=== PATIENT | male | born 1975 | race Caucasian/White ===

== ENCOUNTER 2016-10-02 14:02 | Inpatient (IN) | payer OTHER ==
[~2016-10-02] VITALS: Ht 164.1 cm; Wt 72.6 kg
[2016-10-02] VITALS (11 sets, daily range): BP systolic 83–126; BP diastolic 28–59
[2016-10-02 14:41] LABS: MEAN CORPUSCULAR HGB CONC 29.1 G/DL (32.0-36.0); MEAN CORPUSCULAR VOLUME 86 FL (80-99); MEAN PLATELET VOLUME 4.8 FL (6.5-10.1); PLATELET COUNT 312 K/UL (150-450); RED BLOOD COUNT 2.13 M/UL (4.70-6.10); RED CELL DISTRIBUTION WIDTH 25.5 % (11.6-14.8); WHITE BLOOD COUNT 6.2 K/UL (4.8-10.8)
[2016-10-02 14:59] LABS: ALANINE AMINOTRANSFERASE 19 U/L (3-41); ALBUMIN/GLOBULIN RATIO 1.1 (1.0-2.7); ANION GAP 40 (5-15); ASPARTATE AMINO TRANSFERASE 29 U/L (5-40); CALCIUM 7.6 mg/dL (8.6-10.2); CHLORIDE 77 mEQ/L (98-107); HEMOLYSIS 12; LIPASE 138 U/L (< 60); SODIUM 123 mEQ/L (135-145); TOTAL PROTEIN 6.4 g/dL (6.6-8.7)
[2016-10-02 15:01] LABS: TROPONIN I < 0.30 ng/mL (<=0.30)
[2016-10-02 15:10] LABS: CKMB 6.6 ng/mL (< 6.7)
[2016-10-02 15:15] LABS: CARBON DIOXIDE < 6 mEQ/L (20-30); POTASSIUM 7.9 mEQ/L (3.4-4.9)
[2016-10-02 15:18] LABS: INR 2.2 (0.9-1.1); PROTHROMBIN TIME 22.8 SEC (9.30-11.50)
[2016-10-02 15:23] LABS: CREATININE 35.6 mg/dL (0.7-1.2); GLOMERULAR FILTRATION RATE 1.3 mL/min (>60)
[2016-10-02] MEDS ORDERED: Sodium Polystyrene Sulfonate 15gm Powder ORAL ONE (15:30)
[2016-10-02] MEDS ORDERED: Calcium Gluconate 1gm/10ml vial IVP ONE (15:30)
[2016-10-02 15:36] LABS: BAND NEUTROPHILS % (MANUAL) 1 % (0-8); LYMPHOCYTES % (MANUAL) 4 % (20-45); NEUTROPHILS % (MANUAL) 93 % (45-75); TOTAL CELLS COUNTED 100
[2016-10-02 15:37] LABS: ANISOCYTOSIS 2+; HYPOCHROMASIA 3+; MICROCYTES 1+; POLYCHROMASIA 1+
[2016-10-02 15:38] LABS: BASOPHILS % (MANUAL) 0 % (0-2); EOSINOPHILS % (MANUAL) 0 % (0-3); PLATELET ESTIMATE ADEQUATE; PLATELET MORPHOLOGY NORMAL
[2016-10-02 15:39] LABS: BURR CELLS 2+
--- NOTE | 2016-10-02 16:46 | Diagnostic Imaging Report ---
Indication: Abdominal pain Technique: Spiral acquisitions obtained through the abdomen and pelvis. Patient given oral contrast. No IV contrast utilized, per referring physician request.. Multiplanar reconstructions were generated. Total dose length product 71 mGycm. CTDIvol(s) port mGy Comparison: None Findings: The appendix is normal. No evidence of diverticulosis or diverticulitis. No small bowel distention. No free or loculated intraperitoneal air or fluid. There is a moderate-sized hiatal hernia. This may be a paraesophageal hiatal hernia. Lack of IV contrast limits assessment of solid organs. The gallbladder is somewhat distended. Although there is no overt wall thickening, there is very slight indistinctness to the gallbladder margins. No radiopaque gallstones. No gross focal liver abnormalities. No biliary ductal dilatation. Pancreas, spleen, adrenals, kidneys are unremarkable. No mesenteric or retroperitoneal mass or adenopathy. The bladder is distended. No pelvic mass or adenopathy. The lung bases demonstrate some posterior atelectasis or scarring on the right, are otherwise clear. There is a wedge/burst compression fracture deformity of the T12 vertebral body, with approximately 70% height loss anteriorly, some posterior retropulsion. Impression: Distended gallbladder without stones. Subtle slight indistinctness to the gallbladder margins, of doubtful significance but raises possibility of acute cholecystitis. Consider ultrasound for further evaluation if there is high clinical suspicion Age-indeterminate T12 compression/burst fracture. Consider MRI for better characterization this is considered clinically relevant. No acute process otherwise Hiatal hernia The CT scanner at [facility] is accredited by the [employer] and the scans are performed using protocols designed to limit radiation exposure to as low as reasonably achievable to attain images of sufficient resolution adequate for diagnostic evaluation.
--- NOTE | 2016-10-02 17:46 | History & Physical ---
History and Physical History & Physicial dict renal failure hyper K, hypo Na severe anemia HIV dialysis transfuse ISAI KIRBY Oct 02, 2016 17:46
[2016-10-02 18:17] LABS: APPEARANCE,URINE CLEAR; KETONES,URINE NEGATIVE (NEGATIVE); LEUKOCYTE ESTERASE ,URINE 1+ (NEGATIVE); NITRITE,URINE NEGATIVE (NEGATIVE); PH,URINE 5 (4.5-8.0); PROTEIN,URINE 3+ (NEGATIVE); UROBILINOGEN,URINE NORMAL MG/DL (0.0-1.0)
[2016-10-02 19:04] LABS: BACTERIA,URINE FEW /HPF; RBC,URINE 0-2 /HPF (0 - 0)
[2016-10-02] MEDS ORDERED: VIBRAMYCIN100 MG ORAL (19:22)
[2016-10-02] MEDS ORDERED: METHYLPREDNISOLO4 M2 PO (19:22)
--- NOTE | 2016-10-02 19:30 | Emergency Room Report ---
History of Present Illness General Chief Complaint: Generalized Weakness Source: Medical Record Present Illness HPI 41-year-old male presents ED for evaluation of weakness. States that the last one week he feels weak, poor appetite and not drinking. BP low with field. Patient states he only has a history of iron deficiency anemia. States he was seen at urgent care at [facility] one week ago for treatment of a sinus infection. Denies any fevers or chills. Denies any chest pain or shortness of breath. No aggravating or relieving factors. Denies any other associated symptoms Allergies: Coded Allergies: No Known Allergies (Unverified , 10/02/16) Patient History Past Medical History: none Past Surgical History: none Pertinent Family History: none Social History: Denies: alcohol use, drug use, smoking Immunizations: UTD Reviewed Nursing Documentation: PMH: Agreed, PSxH: Agreed Nursing Documentation-PMH Past Medical History: No History, Except For Review of Systems All Other Systems: negative except mentioned in HPI Physical Exam Vital Signs Date Time Temp Pulse Resp B/P Pulse Ox O2 Delivery O2 Flow Rate FiO2 10/02/16 14:03 74 21 101/55 90 Room Air 10/02/16 14:17 94.3 Sp02 EP Interpretation: reviewed, normal General Appearance: no apparent distress, alert, GCS 15, non-toxic, lethargic Head: normocephalic, atraumatic Eyes: bilateral eye PERRL, bilateral eye normal inspection ENT: hearing grossly normal, normal pharynx, no angioedema, normal voice Neck: full range of motion, supple/symm/no masses Respiratory: chest non-tender, lungs clear, normal breath sounds, speaking full sentences Cardiovascular #1: regular rate, rhythm, no edema Cardiovascular #2: 2+ carotid (R), 2+ carotid (L), 2+ radial (R), 2+ radial (L) , 2+ dorsalis pedis (R), 2+ dorsalis pedis (L) Gastrointestinal: normal bowel sounds, non tender, soft, non-distended, no guarding, no rebound Rectal: deferred Genitourinary: normal inspection, no CVA tenderness Musculoskeletal: back normal, gait/station normal, normal range of motion, non- tender Neurologic: alert, oriented x3, responsive, motor strength/tone normal, sensory intact, speech normal Psychiatric: judgement/insight normal, memory normal, mood/affect normal, no suicidal/homicidal ideation Reflexes: 3+ bicep (R), 3+ bicep (L), 3+ tricep (R), 3+ tricep (L), 3+ knee (R) , 3+ knee (L) Skin: no rash, pallor Lymphatic: no adenopathy Procedures Critical Care Time Critical Care Time i. I feel this is a highly complex case requiring extensive working including EKG/Rhythm strip, Xray/CT/US, Blood/urine lab work, repeat exams while in ED, and administration of strong opiates/narcotics for pain control, admission to hospital or close patient follow up. Total time: 30 min bedside evaluation and treatment excludes procedures (EKG). Reason for critical care: Hypotensive, severe anemia, acute renal failure, hyperkalemia Possible complications: hypotension, hypertension, ID, shock, arrhythmias, metabolic acidosis, end organ damage, respiratory failure. Interventions: Labs, IV fluids, EKG, chest x-ray. Calcium, insulin/D50, Kayexalate. Shreyas catheter placement. Vit K Course: Patient brought in for weakness. Hemoglobin 5.3. K 7.9, Cr 35.6. EKG shows widened QRS. Given calcium, insulin/D50. Given Kayexalate. Blood ordered. Routine catheter placed. Patient will be taken for urgent dialysis Consultations: nursing staff, EMS, family Performed by: Dr Farrell Tolerated well condition = critical j. because of unstable vital signs this patient had a condition that could potentially threaten life or limb. I feel this is a critical patient who required my full attention while patient was considered critical. Total Critical Care Time excluding procedures was greater than 35 minutes Medical Decision Making Diagnostic Impression: Primary Impression: Severe anemia Additional Impressions: ARF (acute renal failure) Qualified Codes: N17.9 - Acute kidney failure, unspecified Hyperkalemia, diminished renal excretion Hyponatremia Pancreatitis Qualified Codes: K86.1 - Other chronic pancreatitis ER Course 41-year-old male presents to ED for weakness, poor appetite, not eating times one week Differential-dehydration, ACS, arrhythmia, sepsis Patient placed on stretcher. After initial history and physical I ordered labs , IV fluids, EKG Labs-no leukocytosis, hemoglobin 5.3, platelets okay, INR 2.2, potassium 7.9, creatinine 35.6, lipase elevated EKG-widening QRS Given calcium, insulin/D50, given Kayexalate. Given IV fluids. PRBCs ordered. CT shows distended bladder but no other acute process I placed Shreyas catheter in the right femoral patient will be receiving emergent dialysis Case discussed with Dr. Nolasco. Dr elaine consulted Diagnoses-severe anemia, ARF, hyperkalemia, hyponatremia, pancreatitis Admitted to ICU in critical condition Labs Test 10/02/16 14:13 10/02/16 14:15 10/02/16 18:00 Prothrombin Time 22.8 SEC (9.30-11.50) Prothromb Time International Ratio 2.2 (0.9-1.1) Activated Partial Thromboplast Time 52 SEC (23-33) White Blood Count 6.2 K/UL (4.8-10.8) Red Blood Count 2.13 M/UL (4.70-6.10) Hemoglobin 5.3 G/DL (14.2-18.0) Hematocrit 18.3 % (42.0-52.0) Mean Corpuscular Volume 86 FL (80-99) Mean Corpuscular Hemoglobin 25.0 PG (27.0-31.0) Mean Corpuscular Hemoglobin Concent 29.1 G/DL (32.0-36.0) Red Cell Distribution Width 25.5 % (11.6-14.8) Platelet Count 312 K/UL (150-450) Mean Platelet Volume 4.8 FL (6.5-10.1) Neutrophils (%) (Auto) % (45.0-75.0) Lymphocytes (%) (Auto) % (20.0-45.0) Monocytes (%) (Auto) % (1.0-10.0) Eosinophils (%) (Auto) % (0.0-3.0) Basophils (%) (Auto) % (0.0-2.0) Differential Total Cells Counted 100 Neutrophils % (Manual) 93 % (45-75) Lymphocytes % (Manual) 4 % (20-45) Monocytes % (Manual) 2 % (1-10) Eosinophils % (Manual) 0 % (0-3) Basophils % (Manual) 0 % (0-2) Band Neutrophils 1 % (0-8) Platelet Estimate Adequate Platelet Morphology Normal Polychromasia 1+ Hypochromasia 3+ Anisocytosis 2+ Microcytosis 1+ [place] Cells 2+ Sodium Level 123 mEQ/L (135-145) Potassium Level 7.9 mEQ/L (3.4-4.9) Chloride Level 77 mEQ/L (98-107) Carbon Dioxide Level < 6 mEQ/L (20-30) Anion Gap 40 (5-15) Blood Urea Nitrogen 173 mg/dL (7-23) Creatinine 35.6 mg/dL (0.7-1.2) Estimat Glomerular Filtration Rate 1.3 mL/min (>60) Glucose Level 85 mg/dL (74-106) Calcium Level 7.6 mg/dL (8.6-10.2) Total Bilirubin 0.3 mg/dL (0.0-1.2) Aspartate Amino Transf (AST/SGOT) 29 U/L (5-40) Alanine Aminotransferase (ALT/SGPT) 19 U/L (3-41) Alkaline Phosphatase 67 U/L (40-129) Total Creatine Kinase 961 U/L (38-174) Creatine Kinase MB 6.6 ng/mL (< 6.7) Creatine Kinase MB Relative Index 0.6 Troponin I < 0.30 ng/mL (<=0.30) Total Protein 6.4 g/dL (6.6-8.7) Albumin 3.4 g/dL (3.5-5.2) Globulin 3.0 g/dL Albumin/Globulin Ratio 1.1 (1.0-2.7) Lipase 138 U/L (< 60) Urine Color Pale yellow Urine Appearance Clear Urine pH 5 (4.5-8.0) Urine Specific [place] 1.015 (1.005-1.035) Urine Protein 3+ (NEGATIVE) Urine Glucose (UA) Negative (NEGATIVE) Urine Ketones Negative (NEGATIVE) Urine Occult Blood Negative (NEGATIVE) Urine Nitrite Negative (NEGATIVE) Urine Bilirubin Negative (NEGATIVE) Urine Urobilinogen Normal MG/DL (0.0-1.0) Urine Leukocyte Esterase 1+ (NEGATIVE) Urine RBC 0-2 /HPF (0 - 0) Urine WBC 2-4 /HPF (0 - 0) Urine Squamous Epithelial Cells None /LPF (NONE/OCC) Urine Bacteria Few /HPF (NONE) Urine Opiates Screen Positive (NEGATIVE) Urine Barbiturates Screen Negative (NEGATIVE) Phencyclidine (PCP) Screen Negative (NEGATIVE) Urine Amphetamines Screen Negative (NEGATIVE) Urine Benzodiazepines Screen Negative (NEGATIVE) Urine Cocaine Screen Negative (NEGATIVE) Urine Marijuana (THC) Screen Negative (NEGATIVE) EKG Diagnostic Results Rate: normal Rhythm: other - widened QRS ST Segments: no acute changes ASA given to the pt in ED: No Rhythm Strip Diag. Results EP Interpretation: yes Rhythm: NSR, no PVC's, no ectopy Last Vital Signs Date Time Temp Pulse Resp B/P Pulse Ox O2 Delivery O2 Flow Rate FiO2 10/02/16 19:05 76 14 98/32 100 Room Air 10/02/16 14:17 94.3 Status: improved Disposition: ADMITTED INPATIENT Condition: Critical Referrals: [facility] (PCP) SRAVANTHI FARRELL M.D. Oct 02, 2016 19:30
[2016-10-02] MEDS: Epogen (for ESRD on dialysis) SUBQ SCH (20:46)
[2016-10-02] MEDS ORDERED: Vancomycin 1 GM in D5W 275 ML IVPB ONE (22:30)
[2016-10-03] VITALS (24 sets, daily range): BP systolic 93–128; BP diastolic 47–73
[2016-10-03] MEDS ORDERED: Vancomycin 1gm inj IVPB ONE (00:40)
--- NOTE | 2016-10-03 00:58 | History and Physical Report ---
DATE OF ADMISSION: 10/02/2016 CHIEF COMPLAINT: Weakness and short of breath. HISTORY OF PRESENT ILLNESS: The patient is a poor historian. He reports that he has been ill for about a week. His cousin, however, is here with him and reports that he has been ill for at least a month with shortness of breath and weakness. He went to Urgent care recently and was diagnosed with sinusitis and given steroids and antibiotics. No laboratory tests were done. The patient reports that he has had some nausea and vomiting with abdominal pain as well. He presented to the emergency department today and was found to have renal failure and severe anemia. Admission was arranged. His creatinine is presently 35. His last creatinine previously was 1.7 about six months ago. PAST MEDICAL HISTORY: HIV and AIDS, hypertension, hyperlipidemia, and alcoholic. He has a history of Kaposi sarcoma, but the side is not known. He is too confused to give a coherent history at this time. He has a history of osteoporosis, , hyperlipidemia, iron deficiency anemia, pancreatitis, and hypogonadism. OUTPATIENT MEDICATIONS: Lisinopril and fenofibrate, testosterone, Isentress, Ativan, Carafate, Celexa, Truvada, Rogaine topical solution and [place] 3 oil as well as Prilosec. ALLERGIES: None. REVIEW OF SYSTEMS: Cannot be obtained due to confusion. PHYSICAL EXAMINATION: GENERAL: The patient is alert and appears disheveled and acutely ill. HEENT: Eyes showed some proptosis. Mouth has dry mucous membranes. CHEST: Clear. CARDIAC: Rhythm is regular without murmur, rub, or gallop. ABDOMEN: Soft and nontender. The liver and spleen not enlarged. There is no ascites or mass. EXTREMITIES: No clubbing, cyanosis, or edema. LABORATORY STUDIES: Show sodium 123, potassium 7.9, bicarbonate less than 6, BUN 173, and creatinine 35.6. CPK is 961. Lipase is 138. INR is 2.2. White count is 6200, hemoglobin 5.3, hematocrit 18.3, and platelet count is 312,000. Urinalysis is pending. IMAGING STUDIES: Imaging shows abdominal and pelvic CT scan with a distended gallbladder without stones. The bladder is distended. There is compression fracture of T12. The kidneys are noted to be unremarkable. No masses were found. IMPRESSIONS: 1. Renal failure acute on chronic. 2. Severe anemia. 3. Severe hyperkalemia. 4. Hyponatremia. 5. Human immunodeficiency virus. 6. History of hypertension now relatively hypotensive. 7. Hyperlipidemia. PLAN: The patient will be seen by Nephrology and a dialysis catheter will be placed and he will be started on dialysis. Blood transfusions will be given. We will check appropriate laboratory studies and consult with Nephrology. I have discussed his care with the cousin at the bedside. Roney Nolasco M.D. DR: SIMONE JOB#: [id number] CC: Biju James M.D.; Fax#: [phone] Nolasco M.D. ; Fax#: [phone]
[2016-10-03] MEDS ORDERED: Cefepime HCl 1 GM in D5W 55 ML IVPB SCH (01:00)
[2016-10-03] MEDS: [UNRECOGNIZED DRUG - OTHER] IV SCH ×4 (01:24→19:29)
[2016-10-03] MEDS: SODIUM BICARBONATE IV SCH ×4 (01:24→19:29)
[2016-10-03] MEDS: D5 IV SCH ×4 (01:24→19:29)
[2016-10-03] MEDS ORDERED: Cefepime 1gm vial ONE (01:41)
--- NOTE | 2016-10-03 02:38 | Consultation ---
DATE OF CONSULTATION: 10/02/2016 NEPHROLOGY CONSULTATION CONSULTING PHYSICIAN: Biju James M.D. REFERRING PHYSICIAN: Roney Nolasco M.D. REASON FOR CONSULTATION: Uremia. HISTORY OF PRESENT ILLNESS: The patient presents with severe weakness, uremia, and hyperkalemia. He is a poor historian. History is taken from the patient as well as review of records from [facility]. He has a history of AIDS, prior treatment for Kaposi's sarcoma, prior acute kidney injury in 2013, depression, hypertension, and anxiety. CKD - 3, but his creatinine was 1.45 in May of 2015, and I believe that is in the range of 1.7 in the fall of 2015. The patient says he has not been eating or drinking. He is very weak and may have had some diarrhea. He is somewhat confused and has some uremic encephalopathy. He also has severe anemia. There is a history of prior vertebral fracture and prior alcohol abuse, but he denies any alcohol for the last year. He has also had prior neck pain; major depression; hypothyroidism, borderline; osteoporosis; syphilis; neuropathy; family history of coronary artery disease; hyperlipidemia; iron-deficiency anemia; condyloma acuminata; esophagitis; hypertriglyceridemia; pancreatitis; fatty liver; and gallbladder polyp on ultrasound. The patient apparently had a note with a visit of 09/23/2016 for which he was given a Medrol Dosepak and doxycycline for apparently sinusitis. MEDICATIONS: He could not give an adequate list of medications, and apparently has not been taking medications lately, but medications taken from a record in [place] 2015 included ferrous sulfate, Isentress, fenofibrate, Truvada, Celexa, testosterone, lisinopril, minoxidil topical, biotin, multivitamins, omeprazole. HABITS: Per records, he is a nonsmoker. He has been a heavy drinker in the past, but quit about a year ago. SYSTEM REVIEW: HEAD, EYES, EARS, NOSE, AND THROAT: Vision and hearing appeared to be good. ENDOCRINE: No definite diabetes. He has borderline thyroid disease. PULMONARY: No asthma or TB. CARDIAC: History of hypertension. GASTROINTESTINAL: History of anorexia, weakness, and diarrhea. GENITOURINARY: No dysuria or difficulty voiding. NEUROLOGIC: No seizures or CVA. Again, the patient is a limited historian. PHYSICAL EXAMINATION: GENERAL: The patient is seen in the emergency room. Again, transferred to the ICU. He is acutely and chronically ill. VITAL SIGNS: Temperature 94.3, rectal; pulse 69; respirations 18; blood pressure 104/46; and pulse oximetry 94 on room air. HEAD, EYES, EARS, NOSE, AND THROAT: Oral mucosa is dry, and there is some mucus on his teeth. Sclerae nonicteric. NECK: No adenopathy. LUNGS: Clear. HEART: Rhythm is regular. I hear no murmur. ABDOMEN: Soft. No organomegaly or focal tenderness. GENITOURINARY: Carrizales catheters in place. No edema, cyanosis, or clubbing. RECTAL: Not done. NEUROLOGIC: He is alert, but somewhat disoriented. Unable to give the month or year. Somewhat . Ocular motions intact in all directions. Smile is symmetric. Tongue is midline. He moves all extremities. PERTINENT LABORATORIES: White count 6.2 and hemoglobin is 5.3 with a platelet of 312,000. Sodium 123, potassium 7.9, chloride 77, CO2 6, BUN 173, creatinine 35.6, glucose 85, and calcium 7.6. CK 961. Troponin less than 0.30. Albumin 3.4. Toxic screen shows positive for urine opiates. INR is 2.2. IMPRESSION: 1. Uremia, likely progression of underlying chronic kidney disease. Etiology unclear. Clinically, he has superimposed dehydration. 2. Hyperkalemia. 3. Acidosis. 4. Anemia of renal disease. 5. AIDS. 6. Possible toxicity of HIV medicines versus other etiology of renal failure to be determined. PLAN: The patient is getting emergent dialysis, hydration, and treatment of his anemia. He is critically ill. Detailed orders have been given. icu time 55 min Thank you. Biju James M.D. DR: DERIC JOB#: [id number] CC: HARJIT
[2016-10-03] MEDS ORDERED: Heparin Sod 1000 units/ml 10ml IV PRN (06:00)
[2016-10-03 06:15] LABS: MEAN CORPUSCULAR HEMOGLOBIN 27.7 PG (27.0-31.0); MEAN CORPUSCULAR HGB CONC 33.4 G/DL (32.0-36.0); MEAN CORPUSCULAR VOLUME 83 FL (80-99); MEAN PLATELET VOLUME 5.5 FL (6.5-10.1); PLATELET COUNT 232 K/UL (150-450); RED BLOOD COUNT 2.02 M/UL (4.70-6.10); RED CELL DISTRIBUTION WIDTH 21.8 % (11.6-14.8); WHITE BLOOD COUNT 3.9 K/UL (4.8-10.8)
[2016-10-03 07:15] LABS: FERRITIN 92 ng/mL (10-230)
[2016-10-03 07:17] LABS: LACTATE DEHYDROGENASE 168 U/L (135-230)
[2016-10-03 07:23] LABS: HEMOLYSIS 3; IRON 219 ug/dL (59-158)
[2016-10-03 07:27] LABS: CREATININE, RANDOM URINE 112.9 mg/dL
[2016-10-03 07:39] LABS: ALBUMIN/GLOBULIN RATIO 0.9 (1.0-2.7); CALCIUM 7.2 mg/dL (8.6-10.2); CREATININE 19.8 mg/dL (0.7-1.2); GLOMERULAR FILTRATION RATE 2.6 mL/min (>60); POTASSIUM 3.2 mEQ/L (3.4-4.9); TOTAL PROTEIN 5.5 g/dL (6.6-8.7)
[2016-10-03 07:40] LABS: URIC ACID 8.6 mg/dL (3.0-7.5)
[2016-10-03 08:37] LABS: BAND NEUTROPHILS % (MANUAL) 0 % (0-8); BASOPHILS % (MANUAL) 0 % (0-2); EOSINOPHILS % (MANUAL) 1 % (0-3); LYMPHOCYTES % (MANUAL) 8 % (20-45); NEUTROPHILS % (MANUAL) 88 % (45-75); PLATELET ESTIMATE ADEQUATE; PLATELET MORPHOLOGY NORMAL; TOTAL CELLS COUNTED 100
[2016-10-03 08:38] LABS: ANISOCYTOSIS 2+
[2016-10-03 08:39] LABS: HYPOCHROMASIA 2+
[2016-10-03 09:29] LABS: MEAN CORPUSCULAR HEMOGLOBIN 27.2 PG (27.0-31.0); MEAN CORPUSCULAR HGB CONC 32.9 G/DL (32.0-36.0); MEAN CORPUSCULAR VOLUME 83 FL (80-99); MEAN PLATELET VOLUME 5.6 FL (6.5-10.1); PLATELET COUNT 238 K/UL (150-450); RED BLOOD COUNT 2.15 M/UL (4.70-6.10); WHITE BLOOD COUNT 4.1 K/UL (4.8-10.8)
[2016-10-03 10:58] LABS: OTHERS PATHOLOGIST COMMENT
[2016-10-03 11:06] LABS: ANISOCYTOSIS 3+; BAND NEUTROPHILS % (MANUAL) 0 % (0-8); BASOPHILS % (MANUAL) 0 % (0-2); EOSINOPHILS % (MANUAL) 0 % (0-3); LYMPHOCYTES % (MANUAL) 11 % (20-45); NEUTROPHILS % (MANUAL) 79 % (45-75); PLATELET ESTIMATE ADEQUATE; PLATELET MORPHOLOGY NORMAL; TOTAL CELLS COUNTED 100
[2016-10-03 11:07] LABS: HYPOCHROMASIA 2+
--- NOTE | 2016-10-03 12:07 | Critical Care Progress Note ---
Assessment/Plan Assessment/Plan 1. Renal failure acute on chronic. 2. Severe anemia. 3. Severe hyperkalemia. 4. Hyponatremia. 5. Human immunodeficiency virus. 6. History of hypertension now relatively hypotensive. 7. Hyperlipidemia. continue dialysis stool OB Protonix transfuse keep in ICU not stable for transfer to Critical Care - Subjective ROS Limited/Unobtainable: Yes Condition: critical IV Access: dialysis access EKG Rhythm: Sinus Rhythm I&O: Intake and Output 10/02/16 10/03/16 19:00 07:00 Intake Total 1000 ml 3500.000 ml Output Total 450 ml 710 ml Balance 550 ml 2790.000 ml Intake Oral 420 ml IV Total 1000 ml 1030.000 ml Blood Product 250 ml Hemodialysis 1800 ml Output Urine Total 450 ml 210 ml Hemodialysis UF 500 ml Critical Care - Objective Last 24 Hour Vital Signs Date Time Temp Pulse Resp B/P Pulse Ox O2 Delivery O2 Flow Rate FiO2 10/03/16 08:00 91 10/03/16 08:00 96.8 92 18 106/65 99 Nasal Cannula 2.0 10/03/16 07:00 92 16 94/56 100 Nasal Cannula 2.0 10/03/16 06:00 92 15 93/50 100 Nasal Cannula 2.0 10/03/16 05:00 93 15 96/47 100 Nasal Cannula 2.0 10/03/16 04:00 97.9 94 14 93/54 100 Nasal Cannula 2.0 10/03/16 04:00 94 10/03/16 03:00 95 15 99/59 100 Nasal Cannula 2.0 10/03/16 02:00 96 19 116/53 100 Nasal Cannula 2.0 10/03/16 01:00 97.6 94 17 128/55 99 Nasal Cannula 2.0 10/03/16 00:05 Nasal Cannula 2.0 28 10/03/16 00:05 99 Nasal Cannula 2.0 28 10/03/16 00:00 91 10/03/16 00:00 91 20 126/54 99 Room Air 10/02/16 23:00 89 18 126/52 96 Room Air 10/02/16 22:15 96.7 90 18 105/41 94 Room Air 10/02/16 22:00 84 18 114/46 94 Room Air 10/02/16 21:45 96.7 84 18 100/59 94 Room Air 10/02/16 21:30 85 18 110/46 94 Room Air 10/02/16 21:15 81 18 84/43 94 Room Air 10/02/16 21:00 84 18 83/36 94 Room Air 10/02/16 20:51 82 10/02/16 20:45 83 18 86/46 94 Room Air 10/02/16 20:30 95.0 78 18 103/28 94 Room Air 10/02/16 20:15 95.8 75 18 98/49 94 Room Air 10/02/16 19:05 76 14 98/32 100 Room Air 10/02/16 14:17 94.3 69 18 104/46 94 Room Air 10/02/16 14:03 74 21 101/55 90 Room Air Status: alert, other - confused Neck: no JVD Lungs: clear Heart: normal rate Abdomen: non-tender Extremities: no C/C/E Accucheck: ISAI MERCADO Oct 03, 2016 12:07
--- NOTE | 2016-10-03 13:10 | Nephrology Progress Note ---
Assessment/Plan Problem List: (1) AIDS (2) Metabolic acidosis (3) ESRD (end stage renal disease) (4) Hyponatremia (5) Hyperkalemia, diminished renal excretion (6) Severe anemia (7) ARF (acute renal failure) (8) Metabolic encephalopathy Plan seen on dialysis, improving cognition, transfusing , lab studies pending to assess etiology of eskd Subjective Constitutional: Reports: weakness HEENT: Reports: no symptoms Genitourinary: Reports: no symptoms Neurologic/Psychiatric: Reports: pre-existing deficit Subjective alert mild confusion Objective Objective Last 24 Hour Vital Signs Date Time Temp Pulse Resp B/P Pulse Ox O2 Delivery O2 Flow Rate FiO2 10/03/16 12:39 Room Air 10/03/16 11:00 89 15 107/61 100 Nasal Cannula 2.0 10/03/16 10:00 91 15 105/52 100 Nasal Cannula 2.0 10/03/16 09:00 95 17 115/73 100 Nasal Cannula 2.0 10/03/16 08:00 91 10/03/16 08:00 96.8 92 18 106/65 99 Nasal Cannula 2.0 10/03/16 07:00 92 16 94/56 100 Nasal Cannula 2.0 10/03/16 06:00 92 15 93/50 100 Nasal Cannula 2.0 10/03/16 05:00 93 15 96/47 100 Nasal Cannula 2.0 10/03/16 04:00 97.9 94 14 93/54 100 Nasal Cannula 2.0 10/03/16 04:00 94 10/03/16 03:00 95 15 99/59 100 Nasal Cannula 2.0 10/03/16 02:00 96 19 116/53 100 Nasal Cannula 2.0 10/03/16 01:00 97.6 94 17 128/55 99 Nasal Cannula 2.0 10/03/16 00:05 Nasal Cannula 2.0 28 10/03/16 00:05 99 Nasal Cannula 2.0 28 10/03/16 00:00 91 10/03/16 00:00 91 20 126/54 99 Room Air 10/02/16 23:00 89 18 126/52 96 Room Air 10/02/16 22:15 96.7 90 18 105/41 94 Room Air 10/02/16 22:00 84 18 114/46 94 Room Air 10/02/16 21:45 96.7 84 18 100/59 94 Room Air 10/02/16 21:30 85 18 110/46 94 Room Air 10/02/16 21:15 81 18 84/43 94 Room Air 10/02/16 21:00 84 18 83/36 94 Room Air 10/02/16 20:51 82 10/02/16 20:45 83 18 86/46 94 Room Air 10/02/16 20:30 95.0 78 18 103/28 94 Room Air 10/02/16 20:15 95.8 75 18 98/49 94 Room Air 10/02/16 19:05 76 14 98/32 100 Room Air 10/02/16 14:17 94.3 69 18 104/46 94 Room Air 10/02/16 14:03 74 21 101/55 90 Room Air Intake and Output 10/02/16 10/03/16 19:00 07:00 Intake Total 1000 ml 3650.000 ml Output Total 450 ml 710 ml Balance 550 ml 2940.000 ml Intake Oral 420 ml IV Total 1000 ml 1180.000 ml Blood Product 250 ml Hemodialysis 1800 ml Output Urine Total 450 ml 210 ml Hemodialysis UF 500 ml Laboratory Tests 10/02/16 14:13: Prothrombin Time 22.8H, Prothromb Time International Ratio 2.2H, Activated Partial Thromboplast Time 52H 10/02/16 14:15: White Blood Count 6.2, Red Blood Count 2.13L, Hemoglobin 5.3*L, Hematocrit 18.3L , Mean Corpuscular Volume 86, Mean Corpuscular Hemoglobin 25.0L, Mean Corpuscular Hemoglobin Concent 29.1L, Red Cell Distribution Width 25.5H, Platelet Count 312, Mean Platelet Volume 4.8L, Neutrophils (%) (Auto) , Lymphocytes (%) (Auto) , Monocytes (%) (Auto) , Eosinophils (%) (Auto) , Basophils (%) (Auto) , Differential Total Cells Counted 100, Neutrophils % ( Manual) 93H, Lymphocytes % (Manual) 4L, Monocytes % (Manual) 2, Eosinophils % ( Manual) 0, Basophils % (Manual) 0, Band Neutrophils 1, Other Cell Type Pathologist comment, Platelet Estimate Adequate, Platelet Morphology Normal, Polychromasia 1+, Hypochromasia 3+, Anisocytosis 2+, Microcytosis 1+, [place]ee Cells 2+, Sodium Level 123L, Potassium Level 7.9*H, Chloride Level 77L, Carbon Dioxide Level < 6*L, Anion Gap 40H, Blood Urea Nitrogen 173H, Creatinine 35.6H, Estimat Glomerular Filtration Rate 1.3, Glucose Level 85, Calcium Level 7.6L, Total Bilirubin 0.3, Aspartate Amino Transf (AST/SGOT) 29, Alanine Aminotransferase (ALT/SGPT) 19, Alkaline Phosphatase 67, Total Creatine Kinase 961H, Creatine Kinase MB 6.6, Creatine Kinase MB Relative Index 0.6, Troponin I < 0.30, Total Protein 6.4L, Albumin 3.4L, Globulin 3.0, Albumin/Globulin Ratio 1.1, Lipase 138H 10/02/16 18:00: Urine Color Pale yellow, Urine Appearance Clear, Urine pH 5, Urine Specific [place] 1.015, Urine Protein 3+H, Urine Glucose (UA) Negative, Urine Ketones Negative, Urine Occult Blood Negative, Urine Nitrite Negative, Urine Bilirubin Negative, Urine Urobilinogen Normal, Urine Leukocyte Esterase 1+H, Urine RBC 0- 2H, Urine WBC 2-4, Urine Squamous Epithelial Cells None, Urine Bacteria Few, Urine Opiates Screen PositiveH, Urine Barbiturates Screen Negative, Phencyclidine (PCP) Screen Negative, Urine Amphetamines Screen Negative, Urine Benzodiazepines Screen Negative, Urine Cocaine Screen Negative, Urine Marijuana (THC) Screen Negative 10/03/16 04:00: Urine Osmolality [Pending], Urine Random Sodium 56, Urine Creatinine 112.9 10/03/16 04:45: White Blood Count 3.9L, Red Blood Count 2.02L, Hemoglobin 5.6*L, Hematocrit 16.7L, Mean Corpuscular Volume 83, Mean Corpuscular Hemoglobin 27.7, Mean Corpuscular Hemoglobin Concent 33.4, Red Cell Distribution Width 21.8H, Platelet Count 232, Mean Platelet Volume 5.5L, Neutrophils (%) (Auto) , Lymphocytes (%) (Auto) , Monocytes (%) (Auto) , Eosinophils (%) (Auto) , Basophils (%) (Auto) , Differential Total Cells Counted 100, Neutrophils % ( Manual) 88H, Lymphocytes % (Manual) 8L, Monocytes % (Manual) 3, Eosinophils % ( Manual) 1, Basophils % (Manual) 0, Band Neutrophils 0, Platelet Estimate Adequate, Platelet Morphology Normal, Hypochromasia 2+, Anisocytosis 2+, Sodium Level 133#L, Potassium Level 3.2#L, Chloride Level 86L, Carbon Dioxide Level 10L , Anion Gap 37H, Blood Urea Nitrogen 104#H, Creatinine 19.8H, Estimat Glomerular Filtration Rate 2.6, Glucose Level 130H, Uric Acid 8.6H, Calcium Level 7.2L, Iron Level 219H, Total Iron Binding Capacity , Percent Iron Saturation , Unsaturated Iron Binding , Ferritin 92, Total Bilirubin 0.3, Aspartate Amino Transf (AST/SGOT) 34, Alanine Aminotransferase (ALT/SGPT) 16, Alkaline Phosphatase 54, Ammonia 30, Lactate Dehydrogenase 168, Total Protein 5.5L, Albumin 2.7L, Globulin 2.8, Albumin/Globulin Ratio 0.9L, Amylase Level 40 , Lipase 74H, Folate [Pending], Anti-Nuclear Antibody Screen [Pending], c-ANCA Titer [Pending], p-ANCA Titer [Pending], Hepatitis B Surface Antigen [Pending], Hepatitis B Surface Antibody [Pending], Hepatitis C Antibody [Pending] 10/03/16 08:30: Stool Occult Blood [Pending] 10/03/16 08:50: White Blood Count 4.1L, Red Blood Count 2.15L, Hemoglobin 5.8*L, Hematocrit 17.8L, Mean Corpuscular Volume 83, Mean Corpuscular Hemoglobin 27.2, Mean Corpuscular Hemoglobin Concent 32.9, Red Cell Distribution Width 21.0H, Platelet Count 238, Mean Platelet Volume 5.6L, Neutrophils (%) (Auto) , Lymphocytes (%) (Auto) , Monocytes (%) (Auto) , Eosinophils (%) (Auto) , Basophils (%) (Auto) , Differential Total Cells Counted 100, Neutrophils % ( Manual) 79H, Lymphocytes % (Manual) 11L, Monocytes % (Manual) 10, Eosinophils % (Manual) 0, Basophils % (Manual) 0, Band Neutrophils 0, Platelet Estimate Adequate, Platelet Morphology Normal, Hypochromasia 2+, Anisocytosis 3+, Vancomycin Level Trough 22.7H Height (Feet): 5 Height (Inches): 4.60 Weight (Pounds): 160 General Appearance: no apparent distress, alert EENT: normal ENT inspection Neck: normal alignment Cardiovascular: normal rate, regular rhythm Respiratory/Chest: lungs clear Extremities: non-tender, normal inspection, other - no edema 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
[2016-10-04] VITALS (25 sets, daily range): BP systolic 105–150; BP diastolic 54–80
[2016-10-04] MEDS: SODIUM BICARBONATE IV SCH (02:46)
[2016-10-04] MEDS: [UNRECOGNIZED DRUG - OTHER] IV SCH (02:46)
[2016-10-04] MEDS: D5 IV SCH (02:46)
[2016-10-04] MEDS ORDERED: Cefepime 500mg in D5W 55ml IVPB SCH (03:00)
[2016-10-04 06:52] LABS: BASOPHILS % (AUTO) 0.4 % (0.0-2.0); LYMPHOCYTES % (AUTO) 9.3 % (20.0-45.0); MEAN CORPUSCULAR HEMOGLOBIN 28.6 PG (27.0-31.0); MEAN CORPUSCULAR HGB CONC 34.2 G/DL (32.0-36.0); MEAN CORPUSCULAR VOLUME 84 FL (80-99); MEAN PLATELET VOLUME 5.4 FL (6.5-10.1); MONOCYTES % (AUTO) 8.9 % (1.0-10.0); NEUTROPHILS % (AUTO) 81.4 % (45.0-75.0); PLATELET COUNT 165 K/UL (150-450); RED BLOOD COUNT 2.79 M/UL (4.70-6.10); RED CELL DISTRIBUTION WIDTH 18.4 % (11.6-14.8)
[2016-10-04 07:23] LABS: CALCIUM 7.5 mg/dL (8.6-10.2); CREATININE 13.2 mg/dL (0.7-1.2); GLOMERULAR FILTRATION RATE 4.2 mL/min (>60); TOTAL PROTEIN 5.2 g/dL (6.6-8.7)
[2016-10-04 07:25] LABS: MAGNESIUM 1.5 mg/dL (1.7-2.5); PHOSPHORUS 6.1 mg/dL (2.5-4.8)
[2016-10-04 07:29] LABS: POTASSIUM 2.6 mEQ/L (3.4-4.9)
--- NOTE | 2016-10-04 08:52 | Nephrology Progress Note ---
Assessment/Plan Problem List: (1) AIDS (2) Metabolic acidosis (3) ESRD (end stage renal disease) (4) Hyponatremia (5) Hyperkalemia, diminished renal excretion (6) Severe anemia (7) ARF (acute renal failure) (8) Metabolic encephalopathy (9) Diarrhea (10) Hypokalemia (11) Pancreatitis (12) OB + stool Plan seen on dialysis, improving cognition, transfused, lab studies pending to assess etiology of eskd, diarrhea studies ordered, anti ulcer regimen Subjective Constitutional: Reports: no symptoms, weakness HEENT: Reports: no symptoms Genitourinary: Reports: no symptoms Neurologic/Psychiatric: Reports: no symptoms Subjective alert mild confusion some loose bm Objective Objective Last 24 Hour Vital Signs Date Time Temp Pulse Resp B/P Pulse Ox O2 Delivery O2 Flow Rate FiO2 10/04/16 08:00 97.1 46 17 119/70 97 Room Air 10/04/16 06:00 52 20 110/71 95 Room Air 10/04/16 05:00 98.4 58 16 125/80 95 Room Air 10/04/16 04:00 66 20 110/71 95 Room Air 10/04/16 04:00 62 10/04/16 03:00 66 20 112/71 95 Room Air 10/04/16 02:00 66 20 108/65 95 Room Air 10/04/16 01:00 66 20 150/71 95 Room Air 10/04/16 00:00 98.4 68 20 105/57 95 Room Air 10/04/16 00:00 69 10/04/16 00:00 68 10/03/16 23:00 76 19 113/64 100 Room Air 10/03/16 22:00 79 20 110/61 100 Room Air 10/03/16 21:00 98.2 75 21 128/68 100 Room Air 10/03/16 20:00 75 10/03/16 20:00 80 20 113/61 100 Room Air 10/03/16 19:20 99 Nasal Cannula 2.0 28 10/03/16 19:10 Nasal Cannula 2.0 28 10/03/16 19:00 77 19 117/63 100 Room Air 10/03/16 18:00 76 18 120/63 100 Room Air 10/03/16 17:00 75 16 103/61 100 Room Air 10/03/16 16:00 98.1 86 15 113/62 100 Nasal Cannula 2.0 10/03/16 16:00 76 10/03/16 15:00 83 18 115/57 100 Nasal Cannula 2.0 10/03/16 14:22 Room Air 10/03/16 14:00 82 17 116/67 100 Nasal Cannula 2.0 10/03/16 13:00 80 15 109/60 100 Nasal Cannula 2.0 10/03/16 12:39 Room Air 10/03/16 12:00 97.7 80 15 105/58 100 Nasal Cannula 2.0 10/03/16 12:00 82 10/03/16 11:00 89 15 107/61 100 Nasal Cannula 2.0 10/03/16 10:00 91 15 105/52 100 Nasal Cannula 2.0 10/03/16 09:00 95 17 115/73 100 Nasal Cannula 2.0 Intake and Output 10/03/16 10/04/16 19:00 07:00 Intake Total 2360 ml 1735 ml Output Total 310 ml 590 ml Balance 2050 ml 1145 ml Intake Oral 360 ml 130 ml IV Total 1500 ml 1575 ml Blood Product 500 ml Other 30 ml Output Urine Total 310 ml 590 ml # Bowel Movements 4 4 Laboratory Tests 10/03/16 08:50: White Blood Count 4.1L, Red Blood Count 2.15L, Hemoglobin 5.8*L, Hematocrit 17.8L, Mean Corpuscular Volume 83, Mean Corpuscular Hemoglobin 27.2, Mean Corpuscular Hemoglobin Concent 32.9, Red Cell Distribution Width 21.0H, Platelet Count 238, Mean Platelet Volume 5.6L, Neutrophils (%) (Auto) , Lymphocytes (%) (Auto) , Monocytes (%) (Auto) , Eosinophils (%) (Auto) , Basophils (%) (Auto) , Differential Total Cells Counted 100, Neutrophils % ( Manual) 79H, Lymphocytes % (Manual) 11L, Monocytes % (Manual) 10, Eosinophils % (Manual) 0, Basophils % (Manual) 0, Band Neutrophils 0, Platelet Estimate Adequate, Platelet Morphology Normal, Hypochromasia 2+, Anisocytosis 3+, Vancomycin Level Trough 22.7H 10/04/16 06:00: White Blood Count 4.0L, Red Blood Count 2.79L, Hemoglobin 8.0#L, Hematocrit 23.4 #L, Mean Corpuscular Volume 84, Mean Corpuscular Hemoglobin 28.6, Mean Corpuscular Hemoglobin Concent 34.2, Red Cell Distribution Width 18.4H, Platelet Count 165, Mean Platelet Volume 5.4L, Neutrophils (%) (Auto) 81.4H, Lymphocytes (%) (Auto) 9.3L, Monocytes (%) (Auto) 8.9, Eosinophils (%) (Auto) 0.0, Basophils (%) (Auto) 0.4, Sodium Level 131L, Potassium Level 2.6*L, Chloride Level 87L, Carbon Dioxide Level 22, Anion Gap 22H, Blood Urea Nitrogen 63#H, Creatinine 13.2H, Estimat Glomerular Filtration Rate 4.2, Glucose Level 185H, Calcium Level 7.5L, Phosphorus Level 6.1H, Magnesium Level 1.5L, Total Bilirubin 0.2, Aspartate Amino Transf (AST/SGOT) 34, Alanine Aminotransferase ( ALT/SGPT) 19, Alkaline Phosphatase 58, Total Creatine Kinase 538H, Total Protein 5.2L, Albumin 2.6L, Globulin 2.6, Albumin/Globulin Ratio 1.0, Hepatitis A IgM Antibody [Pending], Hepatitis B Surface Antigen [Pending], Hepatitis B Core IgM Antibody [Pending], Hepatitis C Antibody [Pending] Height (Feet): 5 Height (Inches): 4.60 Weight (Pounds): 160 General Appearance: no apparent distress, alert EENT: normal ENT inspection Neck: normal alignment Cardiovascular: normal rate, regular rhythm Respiratory/Chest: normal breath sounds Abdomen: non tender, soft, no organomegaly Extremities: other - no edema 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
[2016-10-04] MEDS ORDERED: metroNIDAZOLE 500mg tab ORAL SCH (09:00)
--- NOTE | 2016-10-04 10:00 | Infectious Diseases Prog Note ---
Assessment/Plan Assessment/Plan Full consult to follow: A) 1) hiv, ? cd4/t-cell count, ? viral load 2) ? infectious diarrhea, ? c.diff., ? viral gastroenteritis 3) arf, anemia, hyperlipidemia, icu, nkda, ? sepsis, cultures negative P) 1) rocephin and flagyl 2) check labs, stool studies, us, cd4/viral load 3) anti-retrovirals when stable and immune status known 4) thank you Subjective Allergies: Coded Allergies: No Known Allergies (Unverified , 10/02/16) Objective Vital Signs Last 24 Hour Vital Signs Date Time Temp Pulse Resp B/P Pulse Ox O2 Delivery O2 Flow Rate FiO2 10/04/16 08:00 97.1 46 17 119/70 97 Room Air 10/04/16 06:00 52 20 110/71 95 Room Air 10/04/16 05:00 98.4 58 16 125/80 95 Room Air 10/04/16 04:00 66 20 110/71 95 Room Air 10/04/16 04:00 62 10/04/16 03:00 66 20 112/71 95 Room Air 10/04/16 02:00 66 20 108/65 95 Room Air 10/04/16 01:00 66 20 150/71 95 Room Air 10/04/16 00:00 98.4 68 20 105/57 95 Room Air 10/04/16 00:00 69 10/04/16 00:00 68 10/03/16 23:00 76 19 113/64 100 Room Air 10/03/16 22:00 79 20 110/61 100 Room Air 10/03/16 21:00 98.2 75 21 128/68 100 Room Air 10/03/16 20:00 75 10/03/16 20:00 80 20 113/61 100 Room Air 10/03/16 19:20 99 Nasal Cannula 2.0 28 10/03/16 19:10 Nasal Cannula 2.0 28 10/03/16 19:00 77 19 117/63 100 Room Air 10/03/16 18:00 76 18 120/63 100 Room Air 10/03/16 17:00 75 16 103/61 100 Room Air 10/03/16 16:00 98.1 86 15 113/62 100 Nasal Cannula 2.0 10/03/16 16:00 76 10/03/16 15:00 83 18 115/57 100 Nasal Cannula 2.0 10/03/16 14:22 Room Air 10/03/16 14:00 82 17 116/67 100 Nasal Cannula 2.0 10/03/16 13:00 80 15 109/60 100 Nasal Cannula 2.0 10/03/16 12:39 Room Air 10/03/16 12:00 97.7 80 15 105/58 100 Nasal Cannula 2.0 10/03/16 12:00 82 10/03/16 11:00 89 15 107/61 100 Nasal Cannula 2.0 10/03/16 10:00 91 15 105/52 100 Nasal Cannula 2.0 Height (Feet): 5 Height (Inches): 4.60 Weight (Pounds): 160 Microbiology Date/Time Source Procedure Growth Status 10/02/16 22:15 Blood Blood Culture - Preliminary NO GROWTH AFTER 24 HOURS Resulted 10/02/16 22:15 Blood Blood Culture - Preliminary NO GROWTH AFTER 24 HOURS Resulted 10/03/16 17:00 Indwelling Cath Urine Culture - Preliminary NO GROWTH Resulted 10/03/16 04:00 Urine,Clean Catch Urine Culture - Preliminary NO GROWTH Resulted Laboratory Tests Test 10/04/16 06:00 White Blood Count 4.0 K/UL (4.8-10.8) L Red Blood Count 2.79 M/UL (4.70-6.10) L Hemoglobin 8.0 G/DL (14.2-18.0) #L Hematocrit 23.4 % (42.0-52.0) #L Mean Corpuscular Volume 84 FL (80-99) Mean Corpuscular Hemoglobin 28.6 PG (27.0-31.0) Mean Corpuscular Hemoglobin Concent 34.2 G/DL (32.0-36.0) Red Cell Distribution Width 18.4 % (11.6-14.8) H Platelet Count 165 K/UL (150-450) Mean Platelet Volume 5.4 FL (6.5-10.1) L Neutrophils (%) (Auto) 81.4 % (45.0-75.0) H Lymphocytes (%) (Auto) 9.3 % (20.0-45.0) L Monocytes (%) (Auto) 8.9 % (1.0-10.0) Eosinophils (%) (Auto) 0.0 % (0.0-3.0) Basophils (%) (Auto) 0.4 % (0.0-2.0) Sodium Level 131 mEQ/L (135-145) L Potassium Level 2.6 mEQ/L (3.4-4.9) *L Chloride Level 87 mEQ/L (98-107) L Carbon Dioxide Level 22 mEQ/L (20-30) Anion Gap 22 (5-15) H Blood Urea Nitrogen 63 mg/dL (7-23) #H Creatinine 13.2 mg/dL (0.7-1.2) H Estimat Glomerular Filtration Rate 4.2 mL/min (>60) Glucose Level 185 mg/dL (74-106) H Calcium Level 7.5 mg/dL (8.6-10.2) L Phosphorus Level 6.1 mg/dL (2.5-4.8) H Magnesium Level 1.5 mg/dL (1.7-2.5) L Total Bilirubin 0.2 mg/dL (0.0-1.2) Aspartate Amino Transf (AST/SGOT) 34 U/L (5-40) Alanine Aminotransferase (ALT/SGPT) 19 U/L (3-41) Alkaline Phosphatase 58 U/L (40-129) Total Creatine Kinase 538 U/L (38-174) H Total Protein 5.2 g/dL (6.6-8.7) L Albumin 2.6 g/dL (3.5-5.2) L Globulin 2.6 g/dL Albumin/Globulin Ratio 1.0 (1.0-2.7) Hepatitis A IgM Antibody Pending Hepatitis B Surface Antigen Pending Hepatitis B Core IgM Antibody Pending Hepatitis C Antibody Pending Current Medications Medications (Trade) Dose Ordered Sig/Shannan Route PRN Reason Start Time Stop Time Status Last Admin Dose Admin Cefepime HCl/ Dextrose (Maxipime/D5W) 55 ml @ 110 mls/hr Q24H IVPB 10/04/16 03:00 10/11/16 02:59 10/04/16 05:47 Epoetin Jey (Procrit (for ESRD on dialysis)) 10,000 units SUN-SUN-SUN SUBQ 10/02/16 21:00 11/01/16 20:59 10/02/16 20:46 Heparin Sodium (Porcine) (Heparin Sod 1000 units/ml 10ml) 2,000 unit ONCE PRN IV HD USE ONLY 10/05/16 09:00 10/05/16 23:59 Metronidazole 500 mg 500 mg Q8HR ORAL 10/04/16 09:00 10/11/16 08:59 10/04/16 09:34 Pantoprazole 40 mg 40 mg EVERY 12 HOURS ORAL 10/03/16 09:00 11/02/16 08:59 10/04/16 08:45 Sodium Chloride (Sodium Chloride 1000ml bag) 1,000 ml @ 500 mls/hr Q2H PRN IVLG sbp<90 during hd 10/05/16 08:52 10/05/16 23:59 GUADALUPE OCHOA Oct 04, 2016 10:00
--- NOTE | 2016-10-04 10:10 | Diagnostic Imaging Report ---
Indication:Elevated Bun and Creatinine. Technique: Grayscale and duplex Doppler imaging of the kidneys performed. Comparison: None Findings: The size, contour, and echogenicity of both kidneys are within normal limits. Right kidney is 12.4 CM. Left kidney is 11.7 CM. There is no hydronephrosis. The IVC and urinary bladder are unremarkable. There is a Carrizales catheter present. Impression: Negative exam
[2016-10-04] MEDS ORDERED: cefTRIAXone 1 GM in D5W 50 ML IVPB SCH (12:00)
--- NOTE | 2016-10-04 12:07 | Diagnostic Imaging Report ---
Indication: Cough Comparison: None A single view chest radiograph was obtained. Findings: Cardiac silhouette is enlarged. The lungs are essentially clear. Bones are unremarkable. There is a retrocardiac density that may be a hiatal hernia. Impression: Suspected hiatal hernia.
--- NOTE | 2016-10-04 13:02 | Critical Care Progress Note ---
Assessment/Plan Assessment/Plan 1. Renal failure acute on chronic 2. Severe anemia; GI bleed 3. Severe hyperkalemia, resolved 4. Hyponatremia, resolved 5. Human immunodeficiency virus. 6. History of hypertension now relatively hypotensive. 7. Hyperlipidemia. 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 Critical Care - Subjective ROS Limited/Unobtainable: Yes Condition: improving IV Access: dialysis access EKG Rhythm: Sinus Rhythm I&O: Intake and Output 10/03/16 10/04/16 19:00 07:00 Intake Total 2360 ml 1885 ml Output Total 310 ml 590 ml Balance 2050 ml 1295 ml Intake Oral 360 ml 130 ml IV Total 1500 ml 1725 ml Blood Product 500 ml Other 30 ml Output Urine Total 310 ml 590 ml # Bowel Movements 4 4 Critical Care - Objective Last 24 Hour Vital Signs Date Time Temp Pulse Resp B/P Pulse Ox O2 Delivery O2 Flow Rate FiO2 10/04/16 12:00 97.4 54 15 107/62 95 Room Air 10/04/16 12:00 60 10/04/16 11:00 52 17 110/65 98 Room Air 10/04/16 10:00 49 17 121/71 98 Room Air 10/04/16 09:00 46 15 112/68 99 Room Air 10/04/16 08:00 45 10/04/16 08:00 97.1 46 17 119/70 97 Room Air 10/04/16 07:00 46 15 108/64 99 Room Air 10/04/16 06:00 52 20 110/71 95 Room Air 10/04/16 05:00 98.4 58 16 125/80 95 Room Air 10/04/16 04:00 66 20 110/71 95 Room Air 10/04/16 04:00 62 10/04/16 03:00 66 20 112/71 95 Room Air 10/04/16 02:00 66 20 108/65 95 Room Air 10/04/16 01:00 66 20 150/71 95 Room Air 10/04/16 00:00 98.4 68 20 105/57 95 Room Air 10/04/16 00:00 69 10/04/16 00:00 68 10/03/16 23:00 76 19 113/64 100 Room Air 10/03/16 22:00 79 20 110/61 100 Room Air 10/03/16 21:00 98.2 75 21 128/68 100 Room Air 10/03/16 20:00 75 10/03/16 20:00 80 20 113/61 100 Room Air 10/03/16 19:20 99 Nasal Cannula 2.0 28 10/03/16 19:10 Nasal Cannula 2.0 28 10/03/16 19:00 77 19 117/63 100 Room Air 10/03/16 18:00 76 18 120/63 100 Room Air 10/03/16 17:00 75 16 103/61 100 Room Air 10/03/16 16:00 98.1 86 15 113/62 100 Nasal Cannula 2.0 10/03/16 16:00 76 10/03/16 15:00 83 18 115/57 100 Nasal Cannula 2.0 10/03/16 14:22 Room Air 10/03/16 14:00 82 17 116/67 100 Nasal Cannula 2.0 Status: awake, other - confused Lungs: clear Heart: normal rate Abdomen: non-tender Extremities: no C/C/E Micro: Microbiology Date/Time Source Procedure Growth Status 10/02/16 22:15 Blood Blood Culture - Preliminary NO GROWTH AFTER 24 HOURS Resulted 10/02/16 22:15 Blood Blood Culture - Preliminary NO GROWTH AFTER 24 HOURS Resulted 10/03/16 17:00 Indwelling Cath Urine Culture - Preliminary NO GROWTH Resulted 10/03/16 04:00 Urine,Clean Catch Urine Culture - Preliminary NO GROWTH Resulted Accucheck: ISAI MERCADO Oct 04, 2016 13:02
[2016-10-04] MEDS ORDERED: metroNIDAZOLE 500mg 100 ML IVPB SCH (14:00)
--- NOTE | 2016-10-04 16:49 | Diagnostic Imaging Report ---
Indication:Abdominal pain Technique: Grayscale and duplex Doppler imaging of the abdomen performed. Comparison: None Findings: The liver, demonstrated part of the pancreas, aorta and IVC, both kidneys, spleen appear unremarkable. There is thickening of the gallbladder wall which is nonspecific. There is suggestion of a few polyps. No gallstones are seen. Sonographic Campa's is negative per technologist. There is no biliary ductal dilatation identified. Doppler evaluation of the main portal vein shows patency. There is no ascites. No hydronephrosis seen. Impression: Gallbladder wall thickening nonspecific. Gallbladder polyps
[2016-10-04] MEDS: Epogen (for ESRD on dialysis) SUBQ SCH (20:46)
[2016-10-04] MEDS ORDERED: NS 275ml ONE ×2 (21:24)
[2016-10-04] MEDS ORDERED: D5W 275ml ONE (21:24)
[2016-10-04] MEDS ORDERED: Tubing IV Secondary IV ONE ×2 (21:24)
[2016-10-04] MEDS ORDERED: Tubing Blood Filter IV ONE (21:24)
--- NOTE | 2016-10-05 07:03 | Emergency Room Report ---
History of Present Illness General Chief Complaint: Generalized Weakness Source: Medical Record Present Illness Allergies: Coded Allergies: No Known Allergies (Unverified , 10/02/16) Nursing Documentation-[facility] Past Medical History: No History, Except For Physical Exam Vital Signs Date Time Temp Pulse Resp B/P Pulse Ox O2 Delivery O2 Flow Rate FiO2 10/02/16 14:03 74 21 101/55 90 Room Air 10/02/16 14:17 94.3 10/03/16 00:05 2.0 28 Procedures Central Line Central Line : Consent: Written Central Line Lumen: jose Maximal Sterile Barrier Tech: yes cap, yes mask, yes sterile gown, yes sterile gloves, yes large sterile sheet, yes hand hygiene, yes chlorhexidine prep Central Line Postion: femoral (R) Anesthesia: Lidocaine Complications: none Central Line Post Position: sutured, good blood return Attempts: One Patient Tolerated: Well Complications: None Medical Decision Making Diagnostic Impression: Primary Impression: Severe anemia Additional Impressions: ARF (acute renal failure) Hyponatremia Pancreatitis Hyperkalemia, diminished renal excretion Last Vital Signs Date Time Temp Pulse Resp B/P Pulse Ox O2 Delivery O2 Flow Rate FiO2 10/04/16 21:00 97.5 57 13 115/68 99 Room Air 10/03/16 19:20 2.0 28 Disposition: ADMITTED INPATIENT Condition: Critical Referrals: [facility] (PCP) Patient Instructions: Anemia, Nonspecific, Smoking Cessation, Tips for Success , Hemodialysis SRAVANTHI WIN M.D. Oct 05, 2016 07:03
[2016-10-05] MEDS ORDERED: Heparin Sod 1000 units/ml 10ml IV PRN (09:00)
--- NOTE | 2016-10-05 12:48 | Consultation ---
DATE OF CONSULTATION: 10/05/2016 NOTE: POOR AUDIO QUALITY GASTROENTEROLOGY CONSULTATION REPORT: CHIEF COMPLAINT: I was asked to see this patient by Dr. Roney Nolasco for evaluation of anemia. HISTORY OF PRESENT ILLNESS: The patient is a pleasant 41-year-old man with multiple medical problems, was admitted uremia. He has extensive medical problems including AIDS and ____ hyperkalemia. He recently he had endoscopy and colonoscopy two years ago at [facility] by . He now complains of nausea and some diarrhea, but no hematemesis or melena. He has prior history of alcohol use . PAST MEDICAL HISTORY: History of AIDS, Kaposi's sarcoma, history of renal insufficiency, history of vertebral fractures, history of alcohol use, depression, history of leg pain, hypothyroidism, borderline osteoporosis, syphilis, neuropathy, hyperlipidemia, iron-deficiency anemia, condyloma acuminata, esophagitis, pancreatitis, fatty liver, and gallbladder polyp. SOCIAL HISTORY: The patient history of alcohol use, but stopped. The patient also nonsmoker. FAMILY HISTORY: Positive for coronary artery disease. REVIEW OF SYSTEMS: Otherwise negative. PHYSICAL EXAMINATION: GENERAL: The patient is well-developed and well-nourished man seen in the intensive care unit. HEENT: Normocephalic and atraumatic. Sclerae were anicteric. Oropharynx clear. NECK: Supple. CHEST: Clear to auscultation. CARDIOVASCULAR: Revealed regular rate. ABDOMEN: Soft with good bowel sounds. There is no organomegaly. EXTREMITIES: Revealed no edema. LABORATORY DATA: Laboratory data was noted. The patient had severe anemia, which has been corrected. ASSESSMENT: This patient has anemia which is multifactorial. He does have renal failure. It should be a primary . The patient should have stool occult blood checked to rule out gastrointestinal bleeding. If positive, the patient may need repeat endoscopy and/or colonoscopy. I will try to review the records of [facility] to see his previous workup. In the meantime, proton pump inhibitor also be given and CBC should be followed closely. I would hold off on anticoagulation and monitor the patient very closely. RECOMMENDATIONS: Per above discussion and per orders written in the chart. Thank you for asking me to participate in the care of this patient. Rodrigo Chou M.D. DR: Argelia JOB#: [id number] CC:
--- NOTE | 2016-10-05 23:58 | Consultation ---
DATE OF CONSULTATION: 10/04/2016 INFECTIOUS DISEASE CONSULTATION CONSULTING PHYSICIAN: Jaspreet Muro M.D. ATTENDING PHYSICIAN: Roney Nolasco M.D. REASON FOR CONSULTATION: Possible infectious diarrhea, HIV patient, abdominal pain, nausea, vomiting, diarrhea, weakness, and acute renal failure. HISTORY OF PRESENT ILLNESS: This is a 41-year-old male who has history of HIV, unclear T-cell count, has been on antiretroviral therapy. The patient has a recent diagnosis of sinusitis, was placed on antibiotics. The patient presented to [facility] with nausea, vomiting, diarrhea, and abdominal discomfort. The patient was somewhat hypothermic on admission, question if the patient had early sepsis. Infectious Disease consultation was requested because of the patient's history of HIV and also the possibility of C. diff and infectious diarrhea. A CT scan of the abdomen and pelvis was done, which showed distended gallbladder without stones of doubtful significance. Stool studies are pending. The patient was placed on Rocephin and Flagyl pending workup. The patient also had hypokalemia with potassium of 3.2 and 2.6. Case was discussed with Dr. Nolasco. MAR was noted. Orders were noted. Notes and records reviewed. REVIEW OF SYSTEMS: Constitutional: The patient came in and hypothermic. He has generalized fatigue and weakness. Head And Neck: No thrush or dysphagia. Cardiac: No chest pain or pressure. GI: He came in with abdominal pain, nausea, vomiting, and diarrhea. : No dysuria or frequency. Skin: No rash. Neurologic: No seizures. Pulmonary: No significant shortness of breath, cough, or sputum production. PAST MEDICAL HISTORY: The patient has a history of HIV, unclear what the T-cell count is. He does have a history of what looks like AIDS also, history of hypertension, hyperlipidemia, and history of ETOH abuse or alcoholism. The patient has a history of KS, history of osteoporosis, hyperlipidemia, iron deficiency anemia, pancreatitis, and hypogonadism. ALLERGIES: No known drug allergies. FAMILY HISTORY: Noncontributory. SOCIAL HISTORY: Positive for ETOH. The patient is a nonsmoker. No mention of IV drug abuse, but he is, as described, heavy drinker. MEDICATIONS: Upon reviewing the records, the patient's outpatient medications include lisinopril, fenofibrate, testosterone, Isentress, Ativan, Carafate, Celexa, Truvada, and Prilosec. Medications here, the patient received Rocephin, Flagyl, and Protonix. PHYSICAL EXAMINATION: VITAL SIGNS: Temperature on admission was 94.3 degrees, the patient's later temperature was 97.1, pulse rate 46, respiratory rate 17, blood pressure 119/70, and saturation 97%. GENERAL: The patient is weak and lethargic, but is arousable and somewhat oriented. HEAD AND NECK: Oral exam, no thrush. Eye exam, no icterus. Neck is supple. No JVD. No sinus tenderness. Normocephalic. No facial droop. No neck stiffness. LUNGS: Clear bilaterally. No rhonchi or rales. HEART: Regular. No gallop or murmur. ABDOMEN: Soft. Positive bowel sounds. No rebound. SKIN: No rash or dermatitis. MUSCULOSKELETAL: No effusions or contractures. Legs are without cellulitis. PERIPHERAL VASCULAR: No cyanosis or gangrene. RECTAL: Deferred. GENITOURINARY: No CVA tenderness. LINES: Line sites are without phlebitis. NEUROLOGIC: Generalized weakness. Responsive. LABORATORY DATA: The patient's potassium 2.6, sodium 131, creatinine 13.2, and BUN 63. White count 4.0, hemoglobin 8.0, and platelet count 165,000. Cultures negative to date. Urinalysis, 2 to 4 white blood cells. IMAGING: CT scan of the abdomen and pelvis showed distended gallbladder without stones of doubtful significance. Abdominal ultrasound showed nonspecific gallbladder wall thickening. Chest x-ray showed suspected hiatal hernia. Notes no consolidation. ASSESSMENT AND PLAN: 1. The patient with nausea, vomiting, abdominal pain, diarrhea, acute renal failure, and possible early sepsis. The patient came in with hypothermia. The patient has diarrhea. Differential diagnosis includes Clostridium difficile because of recent antibiotics for sinusitis. In addition, the patient is at risk for infectious diarrhea because of immunocompromised status with history of human immunodeficiency virus and acquired immune deficiency syndrome per records. The patient also has possibly viral gastroenteritis. At this time, continue Rocephin and Flagyl that the patient is on and check final cultures. Imaging was noted. The patient will be seen by Gastroenterology. Continue antibiotics. Check final workup, cultures, and labs. Continue other treatment per Dr. Nolasco. 2. Human immunodeficiency virus and acquired immune deficiency syndrome per the records. The patient T-cell count on arrival unknown at this time. They have been ordered, and antiretrovirals are on hold this time. We will consider restarting once renal failure is resolved and the patient's clinical status improved the patient has. 3. Acute renal failure. 4. Anemia. 5. Human immunodeficiency virus and acquired immune deficiency syndrome. 6. Hypertension. 7. Hyperlipidemia. 8. History of osteoporosis. 9. History of anemia. 10. Pancreatitis. 11. Hypogonadism. 12. Continue treatment per Dr. Nolasco. 13. Allergies are negative. 14. . 15. ICU care. 16. Case discussed with RN. 17. Case discussed with the patient. At the time of this dictation, the patient was transferred to [facility]. Jaspreet Muro M.D. DR: GEORGIE JOB#: [id number] CC:
--- NOTE | 2016-10-06 12:45 | Discharge Summary ---
Discharge Summary Hospital Course Date of Admission Oct 02, 2016 at 16:16 Date of Discharge Oct 04, 2016 at 21:25 Admitting Diagnosis ANEMIA GISELA Brooks is a 41 year old male who was admitted on Oct 02, 2016 at 16:16 for Anemia Hospital Course [id number] Discharge Discharge Disposition Patient was discharged to [facility] Discharge Diagnoses: Sabrina Villatoro NP Oct 06, 2016 12:45
--- NOTE | 2016-10-06 23:38 | Discharge Summary 2 SIG ---
DATE OF ADMISSION: 10/02/2016 DATE OF DISCHARGE: 10/04/2016 CONSULTANTS: 1. Biju James M.D. 2. Jaspreet Muro M.D. 3. Rodrigo Chou M.D. BRIEF HOSPITAL COURSE: The patient is a 41-year-old male, who has been ill for about a month with shortness of breath and weakness. He apparently went to an Urgent Care Center recently and was diagnosed with sinusitis and was given steroids and antibiotics. He presented to emergency room complaining of nausea, vomiting and abdominal pain. On evaluation, he was found to have renal failure and severe anemia. Creatinine was 35 and hemoglobin was 5.3. Admission was arranged and the patient was admitted to ICU. Dr. James was consulted for uremia and hyperkalemia. The patient would need an emergent dialysis. He was also given a total of four units of packed RBC blood transfusion. He was placed on a Protonix. Stool OB was positive. Dr. Chou was consulted for evaluation of anemia. Dr. Muro was also consulted for evaluation of nausea, vomiting, diarrhea and HIV and was started empirically on Rocephin and Flagyl. He was eventually transferred to [facility]. FINAL DIAGNOSES: 1. Acute on chronic renal failure. 2. Severe acute anemia with possible gastrointestinal bleed. 3. Severe hyperkalemia, resolved. 4. Hyponatremia, resolved. 5. Human immunodeficiency virus. 6. Hypotension with history of hypertension. 7. Hyperlipidemia. Roney Nolasco M.D. I have been assigned to dictate discharge summary on this account and I was not involved in the patient's management. Sabrina Villatoro N.P. DR: ALANA JOB#: [id number] CC: HARJIT
--- NOTE | 2016-10-08 18:28 | Cardiology Report ---
APPROVED REPORT EKG Measurement Heart [id number] Sinus rhythm with 1st degree AV block Nonspecific intraventricular block Abnormal ECG
[2016-10-09 11:10] LABS: HIV RNA PCR QUANT <20 copies/mL (.)
== END 2016-10-04 21:25 | disposition short-term general hospital (02) | DRG 682 ==
LOC: EDBD 14:02 → EDBEDREQSVC 15:36 → EDBEDREQ 15:36 → EMR 15:45 → ICU 16:16 → EDBEDREQ 16:28
PROC: 30233N1 Transfusion of Nonautologous Red Blood Cells into Peripheral Vein, Percutaneous Approach (ICD-10-PCS; principal; 2016-10-02)
PROC: 5A1D60Z (ICD-10-PCS; principal; 2016-10-02)
DX: N17.9 Acute kidney failure, unspecified (principal); B20 Human immunodeficiency virus [HIV] disease; G93.41 Metabolic encephalopathy; I95.9 Hypotension, unspecified; E87.2 Acidosis; D62 Acute posthemorrhagic anemia; E87.1 Hypo-osmolality and hyponatremia; E87.5 Hyperkalemia; I12.9 Hypertensive chronic kidney disease with stage 1 through stage 4 chronic kidney disease, or unspecified chronic kidney disease; N18.9 Chronic kidney disease, unspecified; R53.1 Weakness; Z85.9 Personal history of malignant neoplasm, unspecified; E86.0 Dehydration; F10.21 Alcohol dependence, in remission; M81.0 Age-related osteoporosis without current pathological fracture; E78.5 Hyperlipidemia, unspecified
CPT/HCPCS: 36415; 71010; 74176; 76700; 76775; 80053; 80202; 80300; 81003; 82140; 82150; 82270; 82550; 82553; 82570; 82728; 82746; 82962; 83540; 83550; 83615; 83690; 83735; 83935; 84100; 84300; 84484; 84550; 85007; 85025; 85610; 85730; 86021; 86039; 86360; 86705; 86709; 86803; 86850; 86900; 86901; 86920; 87040; 87081; 87086; 87340; 87517; 87536; 93005; 94760; J3430